=== PATIENT | male | born 1985 | race African-American/Black ===

== ENCOUNTER 2020-10-10 22:57 | Emergency (ER) | payer OTHER ==
[2020-10-10 23:39] VITALS: BP 141/82; PULSE 68; TEMP 98.5; BMI 24.3
[2020-10-11] MEDS ORDERED: LIDOCAINE HCL 2% (20ML MULTI-DOSE VIAL) ONE (00:38)
== END 2020-10-11 01:34 | disposition home or self-care (01) ==
LOC: JER 22:57
PROC: 0HQ4XZZ Repair Neck Skin, External Approach (ICD-10-PCS; principal; 2020-10-10)
DX: S11.91XA Laceration without foreign body of unspecified part of neck, initial encounter (principal)
CPT/HCPCS: 12001-25; 99284-25